=== PATIENT | female | born 1980 | race Hispanic/Latino ===

== ENCOUNTER 2018-07-25 14:04 | Emergency (ER) | payer OTHER, SELFPAY ==
[2018-07-25] MEDS ORDERED: Sulfameth/Trimethoprim DS 800-160mg TAB ONE (15:17)
== END 2018-07-25 15:20 | disposition home or self-care (01) ==
LOC: ERS 14:04
DX: L03.221 Cellulitis of neck (principal); E03.9 Hypothyroidism, unspecified; I10 Essential (primary) hypertension; F32.9 Major depressive disorder, single episode, unspecified; Z79.899 Other long term (current) drug therapy
CPT/HCPCS: 99283